=== PATIENT | female | born 1960 | race Caucasian/White ===

== ENCOUNTER 2020-12-17 13:00 | Outpatient (RCR) | payer BC | END 2020-12-25 17:00 | disposition home or self-care (01) | LOC: PT 13:00 | DX: M17.11 Unilateral primary osteoarthritis, right knee (principal) ==

== ENCOUNTER 2021-04-25 07:57 | Outpatient (RCR) | payer BC | END 2021-07-24 | disposition home or self-care (01) | LOC: PT | DX: M17.12 Unilateral primary osteoarthritis, left knee (principal) ==

== ENCOUNTER 2021-08-07 13:48 | Outpatient (RCR) | payer BC | END 2021-08-29 17:00 | disposition home or self-care (01) | LOC: PT 13:48 | DX: M79.605 Pain in left leg (principal) ==